=== PATIENT | female | born 1940 | race Caucasian/White ===

== ENCOUNTER → 2017-03-30 13:05 | Outpatient (POV) | payer MEDICARE, BC, SELFPAY | DX: Z00.00 Encounter for general adult medical examination without abnormal findings (principal) ==

== ENCOUNTER → 2017-07-27 12:49 | Outpatient (POV) | payer MEDICARE, BC, SELFPAY | DX: Z00.00 Encounter for general adult medical examination without abnormal findings (principal) ==

== ENCOUNTER → 2017-11-30 14:18 | Outpatient (POV) | payer MEDICARE, BC, SELFPAY | DX: Z00.00 Encounter for general adult medical examination without abnormal findings (principal) ==

== ENCOUNTER → 2018-05-03 12:49 | Outpatient (POV) | payer MEDICARE, BC, SELFPAY | DX: Z00.00 Encounter for general adult medical examination without abnormal findings (principal) ==

== ENCOUNTER → 2019-01-10 14:23 | Outpatient (POV) | payer MEDICARE, BC, SELFPAY | PROVIDERS: Visit Provider Internal Medicine | DX: Z00.00 Encounter for general adult medical examination without abnormal findings (principal) ==

== ENCOUNTER → 2019-05-09 13:42 | Outpatient (POV) | payer MEDICARE, BC, SELFPAY | DX: Z00.00 Encounter for general adult medical examination without abnormal findings (principal) ==

== ENCOUNTER → 2020-05-29 11:50 | Outpatient (CLI) | payer MEDICARE, BC, SELFPAY ==
--- NOTE | 2020-05-29 12:13 | ECG_ITS ---
APPROVED REPORT Exam: Resting ECG HR:80 bpm ECG Measurements Heart Rate 80 AXES TN 142 P 38 QRSd 78 QRS 18 QT 386 T 36 QTc 445 Conclusion Normal sinus rhythm Normal ECG Electronically signed by : Arnie Bernard, 05/30/2020 08:54:11
[2020-05-29 12:34] LABS: Basophils % 0.5 % (0.1-2.0); Eosinophils # 0.1 K/mm3 (0.0-0.4); Eosinophils % 1.1 % (0.1-12.0); Hematocrit 47.7 % (37.0-47.0); Hemoglobin 15.1 g/dL (12.2-16.2); Lymphocytes # 1.4 K/mm3 (0.7-4.5); Lymphocytes % 20.1 % (10-50); Mean Corpuscular HGB Conc 31.8 g/dL (31.8-35.4); Mean Corpuscular Hemoglobin 30.7 pg (27.0-31.2); Mean Corpuscular Volume 96.7 fl (81-99); Mean Platelet Volume 7.6 fl (7.4-10.4); Monocytes # 0.4 K/mm3 (0.1-1.0); Monocytes % 5.7 % (1.7-9.3); Neutrophils # 5.1 K/mm3 (1.8-7.8); Neutrophils % 72.5 % (37.0-80.0); Platelet Count 268 K/mm3 (142-424); Red Blood Count 4.93 M/mm3 (4.20-5.40); Red Cell Distribution Width 14.5 % (11.5-17.5); White Blood Count 7.1 K/mm3 (4.8-10.8)
[2020-05-29 13:19] LABS: Anion Gap 12.3 mEq/L (5-15); Blood Urea Nitrogen 11 mg/dl (7-17); Calcium 9.4 mg/dl (8.4-10.2); Carbon Dioxide 26 mmol/L (22.0-30.0); Chloride 106 mmol/L (98-107); Estimated Glomerular Filt Rate 80 ml/min (>60); GFR (African American) 97 ML/MIN (>60); Glucose 100 mg/dl (74-100); Potassium 4.3 mmoL/L (3.5-5.1); Sodium 140 mmol/L (136-145)
== END ==
PROVIDERS: Visit Provider Colon & Rectal Surgery
DX: Z01.818 Encounter for other preprocedural examination (principal); K64.2 Third degree hemorrhoids
CPT/HCPCS: 36415; 80048; 85025; 93005

== ENCOUNTER → 2020-10-01 12:56 | Outpatient (POV) | payer MEDICARE, BC, SELFPAY | DX: Z00.00 Encounter for general adult medical examination without abnormal findings (principal) ==

== ENCOUNTER 2022-04-14 10:12 | Inpatient (IN) | payer MEDICARE, BC, SELFPAY ==
[2022-04-14] VITALS (26 sets, daily range): BP systolic 111–175; BP diastolic 66–100; PULSE 59–85; RESP 15–20; TEMP 36.9–37.2; O2SAT 94–100; BMI 29.2; BMI 32.3
--- NOTE | 2022-04-14 | IR_ITS ---
APPROVED REPORT Patient Location: Emergent Welfare Adviser: KARLA Estrada RT (R) PROCEDURES Selective coronary angiogram Thrombectomy to the first diagonal artery Drug-eluting stent deployment to the ostial proximal mid first diagonal artery Drug-eluting stent deployment to the proximal dominant right coronary INDICATION Acute anterolateral ST elevation myocardial infarction, Coronary artery disease Informed consent was obtained prior to the procedure. COMPLICATIONS None Estimated Blood Loss: Less than 10 ml TECHNIQUE One percent lidocaine used to anesthetize the right anterior aspect of the wrist. The right radial artery was accessed via the Seldinger technique. A 6 Fijian sheath was placed in the right radial artery. 2.5 mg of verapamil, 800 mcg of nitroglycerin, 1mg Lidocaine and 5000 U Heparin were given through the arterial sheath. The papa catheter was also used to perform selective coronary angiogram. Therapeutic heparin was administered in the emergency department. The ACT was over 360 seconds. The guide catheter was placed in the left main artery followed by a Choice PT extra-support wire being placed on the LAD. An additional wire was placed in the first diagonal artery and a 2.5 x 12 mm resolute Redway stent was deployed in the ostial proximal segment of the diagonal artery reducing the stenosis. This failed to restore MICHELLE-3 flow therefore a penumbra aspiration catheter was advanced and mechanical thrombectomy then restored MICHELLE-3 flow down the diagonal artery. An additional 2.5 x 26 mm resolute Avila stent was placed distal to the for stent yet still overlapping it and deployed at 12 neil. The stent balloon was then brought back into the proximal portion of the first stent which was placed and then deployed at 20 neil post dilating both stents. MICHELLE 0 flow was present at the beginning of the procedure with MICHELLE-3 flow at the end of the procedure. Following this the apparatus was removed and the guide catheter was placed in the right coronary artery followed by a Choice PT extra-support wire. A 3.5 x 12 mm resolute Avila stent was deployed at 20 neil reducing the severe proximal stenosis to 0%. MICHELLE-3 flow was present before and after the procedure. At the end the procedure the apparatus was removed the sheath was removed good hemostasis was achieved using TR banding patient was transferred to the postop putting in stable condition ANGIOGRAPHIC RESULTS The left main artery Has a distal concentric 20 to 30% stenosis The left anterior descending artery Has proximal mid vessel 10 to 20% stenoses. The distal segment has 30% stenoses. A large first diagonal artery is proximally occluded. At the end of the procedure the diagonal artery is widely patent. A small superior branch less than 1 mm in the first diagonal artery is jailed. Distally the LAD has 40 to 50% stenoses and then 70 to 80% stenosis as the LAD hits the apex. The circumflex artery Nondominant and has proximal 30% stenosis with a mid vessel 40 to 50% stenosis in the large obtuse marginal artery The right coronary artery Is dominant and has proximal eccentric 70% stenosis The BRUNNER ventriculogram reveals Not performed The left ventricular end-diastolic pressure Not measured IMPRESSION Acute ST elevation myocardial infarction involving a proximal large first diagonal artery with successful mechanical thrombectomy and drug-eluting stenting reducing amount of percent occlusion to 0% Severe stenosis in the proximal dominant right coronary with successful stenting reducing the lesion to 0% with 1 drug-eluting stent PLAN 1. Brilinta 90 twice daily plus aspirin 81 mg daily 2. LDL less than 55 to be achieved wi
--- NOTE | 2022-04-14 10:10 | ECG_ITS ---
APPROVED REPORT Exam: Resting ECG HR:81 bpm ECG Measurements Heart Rate 81 AXES NC 144 P 41 QRSd 98 QRS 1 QT 372 T 50 QTc 409 Conclusion SINUS RHYTHM WITH OCCASIONAL SUPRAVENTRICULAR PREMATURE COMPLEXES ST ELEVATION CONSISTENT WITH INJURY, PERICARDITIS, OR EARLY REPOLARIZATION [ST ELEVATION W/O NORMALLY INFLECTED T-WAVE] ABNORMAL ECG UNCONFIRMED REPORT Electronically signed by : Arnie Bernard MD 04/14/2022 17:35:55
--- NOTE | 2022-04-14 10:19 | PC.NURSE ---
ARIADNA RICHARD speaking with dr. burrell
--- NOTE | 2022-04-14 10:20 | PC.NURSE ---
stemi alert called per dr. burrell.
[2022-04-14 10:24] LABS: Basophils # 0.1 K/mm3 (0-0.2); Basophils % 1.1 % (0.1-2.0); Eosinophils # 0.1 K/mm3 (0.0-0.4); Eosinophils % 1.3 % (0.1-12.0); Hematocrit 44.4 % (37.0-47.0); Lymphocytes % 28.9 % (10-50); Mean Corpuscular HGB Conc 33.8 g/dL (31.8-35.4); Mean Corpuscular Hemoglobin 31.5 pg (27.0-31.2); Mean Corpuscular Volume 93.2 fl (81-99); Monocytes # 0.4 K/mm3 (0.1-1.0); Monocytes % 6.3 % (1.7-9.3); Neutrophils # 4.2 K/mm3 (1.8-7.8); Neutrophils % 62.4 % (37.0-80.0); Platelet Count 256 K/mm3 (142-424); Red Blood Count 4.76 M/mm3 (4.20-5.40); Red Cell Distribution Width 14.8 % (11.5-17.5); White Blood Count 6.8 K/mm3 (4.8-10.8)
--- NOTE | 2022-04-14 10:27 | HMH.EDGENADL ---
Discharge Plan Disposition Patient Disposition: Admitted As Inpatient Condition: Good Clinical Impressions Clinical Impression: ST elevation (STEMI) myocardial infarction Discharge ED Provider: Destiny Mcnair Adult HPI General Chief complaint: Chest Pain Stated complaint: chest pain Time Seen by Provider: 04/14/22 10:14 History of Present Illness HPI narrative: This patient is an 82-year-old female who denies significant past medical history presenting to the emergency department for evaluation of substernal chest pain that started this morning after water aerobics class. She states she bent over to drive her self off, and she felt a substernal chest pain radiating to her right shoulder. She states that it was a pressure. She tried to go home and see if it would go away, however it still persisted, so she came to the emergency department for further evaluation. Nothing seems to make it better or worse. It is constant. She has never experienced anything like this in the past. She denies any history of cardiopulmonary issues. Related Data Home Medications Medication Instructions Recorded Confirmed multivitamin 1 tab PO DAILY Supplement 04/14/22 04/14/22 naproxen sodium 220 mg tablet 220 mg PO DAILY Pain 04/14/22 04/14/22 (Aleve) Allergies Allergy/AdvReac Type Severity Reaction Status Date / Time No Known Allergies Allergy Verified 04/14/22 10:22 [facility] Disclaimer: The information contained in this section may have been updated after the patient was seen, as this information can be updated by other users. Medical History Breast cancer Glaucoma (increased eye pressure) Normal hysteroscopy Surgical History H/O hemorrhoidectomy History of hysterectomy Status post left breast lumpectomy Family History Mother Diabetes TIA (transient ischemic attack) Heart disease Social History Smoking Status: Never smoker alcohol intake: never current occupational status: retired Travel in the last 8 weeks: None ROS Obtained: Yes All systems reviewed & no additional complaints except as documented 14 point review of systems obtained and negative except as mentioned in HPI. Physical Exam General General appearance: alert and in no apparent distress Head Head exam: atraumatic and normocephalic Eye Eye exam: Present normal appearance, PERRL and EOMI ENT ENT exam: Present normal exam and normal oropharynx Neck Neck exam: Present normal inspection and full ROM Chest Chest inspection: Present normal inspection and symmetric chest wall rise; Absent tenderness Respiratory Respiratory exam: Present normal lung sounds bilaterally; Absent respiratory distress, wheezes, stridor or accessory muscle use Cardiovascular Cardiovascular exam: Present regular rate and normal rhythm Abdominal Exam Abdominal exam: Present soft; Absent distention or tenderness Extremities Exam Extremities exam: Present normal inspection and full ROM; Absent tenderness or edema Back Exam Back exam: Present normal inspection and full ROM; Absent tenderness Neurological Exam Neurological exam: Present alert and oriented X3 Psychiatric Psychiatric exam: Present normal affect and normal mood Skin Skin exam: Present warm and dry Medical Decision Making Medical Records Medical records reviewed: Yes I reviewed the patient's medical records. Ganga Inquiry Pt receiving controlled substance: No Vital Signs: 04/14/22 10:12 Temperature 98.4 F Temperature Source Oral Pulse Rate [Right Radial] 85 Respiratory Rate 18 Blood Pressure [Right Arm] 166/84 H Blood Pressure Mean [Right Arm] 111 Blood Pressure Source [Right Arm] Automatic Cuff Blood Pressure Position [Right Arm] Sitting 02 Sat by Pulse Oximetry 94 L
--- NOTE | 2022-04-14 10:29 | PC.NURSE ---
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
--- NOTE | 2022-04-14 10:30 | PC.NURSE ---
pt transported to label paster via stretcher per citlaly warnerrn and citlaly barrett
[2022-04-14 10:34] LABS: Chloride 107 mmol/L (98-107); Potassium 4.3 mmoL/L (3.5-5.1); Sodium 142 mmol/L (136-145)
[2022-04-14 10:36] LABS: Blood Urea Nitrogen 16 mg/dl (7-17); Creatinine Clearance Estimated 49 mL/min (50-200); Estimated Glomerular Filt Rate 80 ml/min (>60); GFR (African American) 97 ML/MIN (>60)
[2022-04-14 10:37] LABS: Alanine Aminotransferase 17 U/L (12-78); Alkaline Phosphatase 112 U/L (38-126); Anion Gap 10.3 mEq/L (5-15); Aspartate Amino Transferase 31 U/L (14-36); Bilirubin,Direct 0.1 mg/dl (0.0-0.4); Bilirubin,Indirect 1.3 mg/dL (0.0-0.9); Bilirubin,Total 1.4 mg/dl (0.2-1.3); Bilirubin,Unconjugated 1.3 mg/dL (0.0-1.1); Calcium 8.9 mg/dl (8.4-10.2); Carbon Dioxide 29 mmol/L (22.0-30.0); Glucose 113 mg/dl (74-100); Total Protein,Serum 7.1 g/dl (6.3-8.2)
--- NOTE | 2022-04-14 10:41 | PC.NURSE ---
waiting senior telecommunications technician back from dr. rivera for admission
--- NOTE | 2022-04-14 10:43 | PC.NURSE ---
ARIADNA RICHARD speaking with dr. rivera
--- NOTE | 2022-04-14 10:43 | PC.NURSE ---
DR. PARIKH SPEAKING WITH DR. BASSETT
--- NOTE | 2022-04-14 10:44 | PC.NURSE ---
notified powerhouse mechanic helper of admission
[2022-04-14 10:51] LABS: Troponin I < 0.01 ng/ml (0.00-0.034)
[2022-04-14 11:21] LABS: CATHL Activated Clotting Time 367 SEC (74-125)
--- NOTE | 2022-04-14 11:42 | PC.NURSE ---
arrived to floor by latia fromn crime lab technician at 11:35
[2022-04-14 12:17] LABS: Coronavirus 19, PCR Not Detected (NotDetected); Influenza A, PCR Not Detected (NotDetected); Influenza B, PCR Not Detected (NotDetected)
--- NOTE | 2022-04-14 12:43 | EXP.HP ---
History of Present Illness *Admission Date: 04/14/22 *Reason for visit:: STEMI *History of present illness: Ms. Kent is an 82-year-old female with a history of Breast cancer Who after getting out of the water from her water aerobics class and leaning over to dry her legs off experience some discomfort in her left anterior chest. She more or less ignored the discomfort and drove home. When the pain continued at home she presented to [facility] emergency room. She denies having any shortness of breath or palpitations. She states she did experience some nausea with her drive home. With evaluation in the emergency room EKG indicated anterior lateral ST changes. She was taken directly to the Cardiac catheterization lab with the following notation of the procedure/Findings: IMPRESSION Acute ST elevation myocardial infarction involving a proximal large first diagonal artery with successful mechanical thrombectomy and drug-eluting stenting reducing amount of percent occlusion to 0% Severe stenosis in the proximal dominant right coronary with successful stenting reducing the lesion to 0% with 1 drug-eluting stent PLAN 1. Brilinta 90 twice daily plus aspirin 81 mg daily 2. LDL less than 55 to be achieved with high intensity statin 3. Avoidance of tobacco products 4. Risk factor modification 5. Cardiac rehabilitation 6. Echocardiogram prior to discharge home 7. Patient requires at least 48 hours of continuous telemetry given the ST elevation myocardial infarction. With this visit post cath, patient is feeling well. She denies any chest pain or shortness of breath. She states she is ready to go home. Admission Laboratory data reveals a normal hemoglobin/hematocrit and white blood cell count. Blood chemistries show normal electrolytes and renal function. She does have a slightly elevated bilirubin at 1.4. Troponin I on admission to the ER was 0.01. [facility] Disclaimer: The information contained in this section may have been updated after the patient was seen, as this information can be updated by other users. Medical History Breast cancer Glaucoma (increased eye pressure) Normal hysteroscopy Surgical History H/O hemorrhoidectomy History of hysterectomy Status post left breast lumpectomy Family History Mother Diabetes TIA (transient ischemic attack) Heart disease Social History Smoking Status: Never smoker alcohol intake: never current occupational status: retired Travel in the last 8 weeks: None Review of Systems Constitutional Constitutional: Denies fatigue, Denies fever(s) and Denies headache(s) Eyes Eyes: Denies change in vision ENT Ears, Nose, Mouth, and Throat: Denies dizziness, Denies otalgia, Denies headache(s), Reports nasal discharge (This is an ongoing issue), Denies post nasal drip and Denies sore throat *Cardiovascular Cardiovascular: Reports chest pain and Denies dyspnea *Respiratory Respiratory: Denies chest congestion and Denies dyspnea *Gastrointestinal Gastrointestinal: Denies abdominal pain, Denies constipation, Denies diarrhea, Denies heartburn, Reports nausea and Denies vomiting *Genitourinary Genitourinary: Denies difficulty voiding *Musculoskeletal Musculoskeletal: Denies abnormal gait and Denies arthralgias *Neurologic Neurologic: Denies abnormal gait, Denies abnormal speech, Denies dizziness, Denies headache(s) and Denies seizure-like activity Endocrine Endocrine: Denies fatigue Meds Home Medications and Allergies Home Medications Medication Instructions Recorded Confirmed Type multivitamin 1 tab PO DAILY Supplement 04/14/22 04/14/22 History naproxen sodium 220 mg tablet 220 mg PO DAILY Pain 04/14/22 04/14/22 History (Rinku) New Prescriptions to
--- NOTE | 2022-04-14 14:04 | EXP.CARD.CON ---
History of Present Illness History of Present Illness Consult date: 04/14/22 Requesting physician: Kt Olguin Consult reason: chest pain Chief complaint: STEMI Additional Medical History:: Significant past medical history Breast cancer Left heart cath 04/14/[address] elevation myocardial infarction involving a proximal large first diagonal artery with successful mechanical thrombectomy and drug-eluting stenting reducing amount of percent occlusion to 0% Severe stenosis in the proximal dominant right coronary with successful stenting reducing the lesion to 0% with 1 drug-eluting stent PLAN 1. Brilinta 90 twice daily plus aspirin 81 mg daily 2. LDL less than 55 to be achieved with high intensity statin 3. Avoidance of tobacco products 4. Risk factor modification 5. Cardiac rehabilitation 6. Echocardiogram prior to discharge home 7. Patient requires at least 48 hours of continuous telemetry given the ST elevation myocardial infarction. History of present illness: 82-year-old white female presented to emergency department this morning with complaints of left anterior chest pain that started approximately 1 hour prior to arrival. Patient reports she had just finished a water aerobics class when pain developed. Reports pain was a pressure/burning sensation in the left anterior chest, nonradiating, associated with mild nausea 5/10. Patient reports initially she just ignored it but when pain continued as she drove home she decided to go to ER. Upon presentation to emergency department EKG showed acute anterolateral ST elevation and patient was taken to the [facility]. Patient underwent successful mechanical thrombectomy and received DEREK to first diagonal artery and to proximal dominant RCA. Patient currently admitted for 48-hour observation. Initial labs were reviewed and troponin was noted to be negative. Vital stable. Patient denies chest pain or shortness of breath at this time [facility] Disclaimer: The information contained in this section may have been updated after the patient was seen, as this information can be updated by other users. Medical History Breast cancer Glaucoma (increased eye pressure) Normal hysteroscopy Surgical History H/O hemorrhoidectomy History of hysterectomy Status post left breast lumpectomy Family History Mother Diabetes TIA (transient ischemic attack) Heart disease Social History Smoking Status: Never smoker alcohol intake: never current occupational status: retired Travel in the last 8 weeks: None Review of Systems Review of Systems Review of systems:: pertinent systems reviewed and negative unless documented below Constitutional Constitutional: Denies headache(s) ENT Ears, Nose, Mouth, and Throat: Denies dizziness and Denies headache(s) *Cardiovascular Cardiovascular: Reports system reviewed and no additional complaints, except as documented and Reports chest pain *Respiratory Respiratory: Reports system reviewed and no additional complaints, except as documented *Gastrointestinal Gastrointestinal: Reports system reviewed and no additional complaints, except as documented *Musculoskeletal Musculoskeletal: Denies abnormal gait *Neurologic Neurologic: Denies abnormal gait, Denies abnormal speech, Denies confusion, Denies dizziness, Denies headache(s) and Denies seizure-like activity Psychiatric Psychiatric: Reports system reviewed and no additional complaints, except as documented and Denies confusion Exam Data for Last 24 hours Vital signs and Labs for Last 24 Hours: Temp Pulse Resp BP Pulse Ox 98.4 F 60 16 137/96 H 97 04/14/22 10:30 04/14/22 13:55 04/14/22 13:55 04/14/22 13:55 04/14/22 13:55 Laboratory Results - last 24 hr
--- NOTE | 2022-04-14 14:17 | CA_ITS ---
APPROVED REPORT EXAM: Comprehensive 2D, Doppler, and color-flow Echocardiogram Staff Certified Nurse Midwife: Nancy More RVT Ht: 5 ft 2 in Wt: 176lbs BSA: 1.81 BP: 137/96 mmHg Indications: STEMI,CAD,CP 2D Dimensions LVOT 2.01 cm (M/F) 1.5-2.5 LA Volume 31.90 mL LA Volume Index 17.62 mL/m2 (M/F) 16-34 M-Mode Dimensions RVDd 2.90 cm (0.9-2.6) LA Diam 4.20 cm (1.9-4.0) LVDd 4.63 cm (3.5-5.7) Ao Diam 2.93 cm (2.0-3.7) LVDs 3.34 cm (3.5-5.7) IVSd 1.05 cm (0.6-1.1) PWd 0.56 cm (0.6-1.1) EF (Teich) 54.00% FS 27.90% EDV (Teich) 98.80 mL ESV (Teich) 45.40 mL LV Diastology E Decel Time 187.00 (160-240 msec) E/A Ratio 0.7 MED E' 5.20 (< 7 cm/sec) E'/MED E' Ratio 15.10 (>14) LAT E' 4.40 (<10 cm/sec) E/LAT E' Ratio 17.84 (>14) Aortic Valve LVOT Max 98.00 (70-110 cm/s) LVOT VTI 24.27 cm AoV Peak Rehan. 213.00 (50-130 cm/s) AI PHT 831.00 ms AO Peak GR. 18.20 mmHg AO Mean GR. 11.70 (<5 mmHg) AO VTI 50.57 (18-25 cm) WILBERTO (VTI) 1.52 (2.5-4.5 cm2) Mitral Valve MV E Max Rehan. 79.00 (40-130 cm/s) MV A Velocity 117.00 (40-130 cm/s) E/A Ratio 0.67 MV Decel. Time 187.00 (160-240 ms) MV PHT 55.00 ms Pulmonary Valve PV Peak Velocity 71.00 (50-150 cm/s) Tricuspid Valve TR P. Velocity 312.00 cm/s RAP Estimate 10.00 mmHg RVSP 49.00 mmHg Left Ventricle Left atrium is mildly enlarged the left ventricle is normal size mild concentric left ventricular hypertrophy, estimated ejection fraction approximately 30%, there is marked hypokinesis involving the distal septum, anterior apical and apex and anterolateral wall. Grade 1 diastolic dysfunction seen with tissue Doppler evidence of raise left atrial pressure. Right Ventricle Right atrium and right ventricle are normal size and contractility. Aortic Valve Aortic valve is thickened and calcified without significant aortic stenosis, there is mild aortic insufficiency. Mitral Valve Mitral valve leaflets are minimally thickened, there is mild mitral regurgitation. Tricuspid Valve Tricuspid valve grossly normal, there is mild tricuspid regurgitation, tricuspid regurgitation jet velocity is inadequate for calculation of the right ventricular systolic pressure. Pulmonic Valve Pulmonic valve is poorly visualized. Great Vessels Aortic root is normal size. Inferior vena cava is mildly dilated. Pericardium No significant pericardial effusion noted. Conclusion 1. Mildly enlarged left atrium, normal left ventricular size mild concentric left ventricular hypertrophy, estimated ejection fraction 30% with multiple segmental wall motion abnormality described above, grade 1 diastolic dysfunction seen with tissue Doppler evidence of raise left atrial pressure. 2. Thickened and calcified aortic valve without significant aortic stenosis, there is mild aortic insufficiency. 3. Mild mitral and tricuspid regurgitation. 4. No significant pericardial effusion noted. 5. Inferior vena cava is mildly dilated. Electronically signed by : Beto Clarke MD 04/15/2022 05:46:54
[2022-04-14 14:33] LABS: Chol/HDL Ratio 3.3 (1-3.5); Cholesterol 231 mg/dl (140-200); HDL Cholesterol 69 mg/dl (40-60); Triglycerides 88 mg/dl (30-150); VLDL Cholesterol 18 mg/dL (0-40)
[2022-04-14 14:44] LABS: Direct LDL Cholesterol 120.67 mg/dL (100-129)
--- NOTE | 2022-04-14 20:45 | PC.NURSE ---
pt c/o'd of epigastric pain and needing to use bathroom, took pt to bathroom and notifed MD Bernard that pt having epigastric pain, MD stated was likely reperfusion pain and to order tyelnol for pain, when pt got back from bathroom stated pain felt better was more discomfort now
--- NOTE | 2022-04-14 20:50 | PC.NURSE ---
notified pt's via telephone per pt's request, coming to sit with pt
[2022-04-15] VITALS (11 sets, daily range): BP systolic 110–134; BP diastolic 60–81; PULSE 60–72; RESP 16–18; TEMP 36.4–37.1; O2SAT 95–98; BMI 31.1; BMI 30.8
[2022-04-15 06:36] LABS: Basophils # 0.1 K/mm3 (0-0.2); Basophils % 0.8 % (0.1-2.0); Eosinophils # 0.1 K/mm3 (0.0-0.4); Eosinophils % 0.9 % (0.1-12.0); Hematocrit 41.8 % (37.0-47.0); Hemoglobin 13.7 g/dL (12.2-16.2); Lymphocytes # 1.4 K/mm3 (0.7-4.5); Lymphocytes % 21.8 % (10-50); Mean Corpuscular HGB Conc 32.8 g/dL (31.8-35.4); Mean Corpuscular Hemoglobin 31.1 pg (27.0-31.2); Mean Corpuscular Volume 94.7 fl (81-99); Mean Platelet Volume 7.6 fl (7.4-10.4); Monocytes # 0.6 K/mm3 (0.1-1.0); Monocytes % 8.8 % (1.7-9.3); Neutrophils # 4.4 K/mm3 (1.8-7.8); Neutrophils % 67.8 % (37.0-80.0); Platelet Count 239 K/mm3 (142-424); Red Blood Count 4.42 M/mm3 (4.20-5.40); Red Cell Distribution Width 14.9 % (11.5-17.5); White Blood Count 6.4 K/mm3 (4.8-10.8)
[2022-04-15 06:56] LABS: Anion Gap 6.6 mEq/L (5-15); Blood Urea Nitrogen 17 mg/dl (7-17); Calcium 8.3 mg/dl (8.4-10.2); Carbon Dioxide 27 mmol/L (22.0-30.0); Chloride 109 mmol/L (98-107); Creatinine Clearance Estimated 52 mL/min (50-200); Estimated Glomerular Filt Rate 80 ml/min (>60); GFR (African American) 97 ML/MIN (>60); Glucose 87 mg/dl (74-100); Potassium 3.6 mmoL/L (3.5-5.1); Sodium 139 mmol/L (136-145)
--- NOTE | 2022-04-15 08:03 | EXP.ACUTE.PN ---
Subjective *Date: 04/15/22 *Time: 08:44 Interval history: Patient states she is feeling well this morning. She denies any chest pain or shortness of breath. She states she slept well last night. Medical Exam Vital signs and Labs for Last 24 Hours: Vital Signs Temp Pulse Pulse Resp BP BP BP 04/15/22 04:00 60 04/15/22 03:48 98.8 F 68 18 110/60 04/15/22 00:00 70 04/14/22 23:43 99.0 F 74 18 131/80 04/14/22 21:00 72 18 162/85 H 04/14/22 22:00 66 16 129/78 04/14/22 20:00 04/14/22 19:30 68 18 150/92 H 04/14/22 20:00 70 04/14/22 20:00 98.5 F 72 20 175/87 H 04/14/22 18:25 75 20 157/100 H 04/14/22 17:25 77 16 158/68 H 04/14/22 16:25 72 18 134/86 04/14/22 16:00 73 04/14/22 15:25 65 16 128/75 04/14/22 12:00 70 04/14/22 14:25 62 17 158/77 H 04/14/22 13:55 60 16 137/96 H 04/14/22 13:30 59 L 15 149/76 H 04/14/22 12:45 04/14/22 12:55 59 L 16 140/81 04/14/22 12:25 60 16 142/66 H 04/14/22 12:10 66 16 135/72 04/14/22 11:55 60 17 111/70 04/14/22 11:40 67 16 136/70 04/14/22 11:25 67 18 121/67 04/14/22 11:20 67 18 124/69 04/14/22 11:15 65 19 118/67 04/14/22 11:15 65 04/14/22 11:10 65 19 111/70 04/14/22 10:30 98.4 F 83 18 164/78 H 04/14/22 10:12 98.4 F 85 18 166/84 H Pulse Ox 04/15/22 04:00 04/15/22 03:48 96 04/15/22 00:00 04/14/22 23:43 96 04/14/22 21:00 95 04/14/22 22:00 95 04/14/22 20:00 98 04/14/22 19:30 94 L 04/14/22 20:00 04/14/22 20:00 95 04/14/22 18:25 97 04/14/22 17:25 97 04/14/22 16:25 96 04/14/22 16:00 04/14/22 15:25 97 04/14/22 12:00 04/14/22 14:25 98 04/14/22 13:55 97 04/14/22 13:30 97 04/14/22 12:45 99 04/14/22 12:55 95 04/14/22 12:25 97 04/14/22 12:10 96 04/14/22 11:55 97 04/14/22 11:40 94 L 04/14/22 11:25 100 04/14/22 11:20 100 04/14/22 11:15 99 04/14/22 11:15 04/14/22 11:10 96 04/14/22 10:30 04/14/22 10:12 94 L Intake and Output 04/14/22 04/15/22 04/15/22 19:59 03:59 11:59 Intake Total 300 / 300 Output Total 300 / 300 0 / 300 0 / 300 Balance 0 / 0 0 / 0 0 / 0 Intake: Intake, Oral Amount 300 / 300 Output: Output, Urine Amount 300 / 300 0 / 300 0 / 300 Other: Number of Unmeasured Voids 1 1 1 Number of Bowel Movements 1 Weight 169 lb 9 oz Patient Weight 04/15/22 11:59 Weight 169 lb 9 oz Laboratory Results - last 24 hr 04/14/22 10:15: WBC 6.8, RBC 4.76, Hgb 15.0, Hct 44.4, MCV 93.2, MCH 31.5 H, MCHC 33.8, RDW 14.8, Plt Count 256, MPV 8.0, Neut % (Auto) 62.4, Lymph % (Auto) 28.9, [place] % (Auto) 6.3, Eos % (Auto) 1.3, Baso % (Auto) 1.1, Neut # (Auto) 4.2, Lymph # (Auto) 2.0, [place] # (Auto) 0.4, Eos # (Auto) 0.1, Baso # (Auto) 0.1 04/14/22 10:15: Sodium 142, Potassium 4.3, Chloride 107, Carbon Dioxide 29, Anion Gap 10.3, BUN 16, Creatinine 0.70, Estimated Creat Clear 49, Estimated GFR 80, Est GFR ( Amer) 97, Glucose 113 H, Calcium 8.9, Total Bilirubin 1.4 H, Direct Bilirubin 0.1, Conjugated Bilirubin 0.0, Indirect Bilirubin 1.3 H, Unconjugated Bilirubin 1.3 H, AST 31, ALT 17, Alkaline Phosphatase 112, Troponin I < 0.01, Total Protein 7.1, Albumin 4.0 04/14/22 10:15: Triglycerides 88, Cholesterol 231 H, LDL Cholesterol Direct 120.67, VLDL Cholesterol 18, HDL Cholesterol 69 H, Cholesterol/HDL Ratio 3.3 04/14/22 11:42: Activated Clotting Time 367 H* 04/14/22 12:12: SARS-CoV-2 (PCR) Not detected, Influenza A Untype (PCR) Not detected, Influenza Type B (PCR) Not detected 04/15/22 05:43: WBC 6.4, RBC 4.42, Hgb 13.7, Hct 41.8, MCV 94.7, MCH 31.1, MCHC 32.8, RDW 14.9, Plt Count 239, MPV 7.6, Neut % (Auto) 67.8, Lymph % (Auto) 21.8, [place] % (Auto) 8.8, Eos % (Auto) 0.9, Baso % (Auto) 0.8, Neut # (Auto) 4.4, Lymph # (Auto) 1.4, [place] # (Auto) 0.6, Eos # (Auto) 0.1, Baso # (
--- NOTE | 2022-04-15 09:15 | EXP.CARD.PN ---
Subjective Subjective Date: 04/15/22 Time: 08:00 Principal diagnosis: stemi Interval history: Patient sitting up in bed this morning with at bedside. Reports had a good night. Denies any chest pain or shortness of air. A.m. labs reviewed. Echo from 04/14/2022 shows an ejection fraction of 30%, grade 1 diastolic dysfunction, thickened and calcified aortic valve without significant aortic stenosis, mild aortic insufficiency. Exam Data for Last 24 hours Vital signs and Labs for Last 24 Hours: Temp Pulse Resp BP Pulse Ox 97.8 F 63 16 118/65 96 04/15/22 08:00 04/15/22 08:00 04/15/22 08:00 04/15/22 08:00 04/15/22 08:00 Laboratory Results - last 24 hr 04/14/22 10:15: WBC 6.8, RBC 4.76, Hgb 15.0, Hct 44.4, MCV 93.2, MCH 31.5 H, MCHC 33.8, RDW 14.8, Plt Count 256, MPV 8.0, Neut % (Auto) 62.4, Lymph % (Auto) 28.9, [place] % (Auto) 6.3, Eos % (Auto) 1.3, Baso % (Auto) 1.1, Neut # (Auto) 4.2, Lymph # (Auto) 2.0, [place] # (Auto) 0.4, Eos # (Auto) 0.1, Baso # (Auto) 0.1 04/14/22 10:15: Sodium 142, Potassium 4.3, Chloride 107, Carbon Dioxide 29, Anion Gap 10.3, BUN 16, Creatinine 0.70, Estimated Creat Clear 49, Estimated GFR 80, Est GFR ( Amer) 97, Glucose 113 H, Calcium 8.9, Total Bilirubin 1.4 H, Direct Bilirubin 0.1, Conjugated Bilirubin 0.0, Indirect Bilirubin 1.3 H, Unconjugated Bilirubin 1.3 H, AST 31, ALT 17, Alkaline Phosphatase 112, Troponin I < 0.01, Total Protein 7.1, Albumin 4.0 04/14/22 10:15: Triglycerides 88, Cholesterol 231 H, LDL Cholesterol Direct 120.67, VLDL Cholesterol 18, HDL Cholesterol 69 H, Cholesterol/HDL Ratio 3.3 04/14/22 11:42: Activated Clotting Time 367 H* 04/14/22 12:12: SARS-CoV-2 (PCR) Not detected, Influenza A Untype (PCR) Not detected, Influenza Type B (PCR) Not detected 04/15/22 05:43: WBC 6.4, RBC 4.42, Hgb 13.7, Hct 41.8, MCV 94.7, MCH 31.1, MCHC 32.8, RDW 14.9, Plt Count 239, MPV 7.6, Neut % (Auto) 67.8, Lymph % (Auto) 21.8, [place] % (Auto) 8.8, Eos % (Auto) 0.9, Baso % (Auto) 0.8, Neut # (Auto) 4.4, Lymph # (Auto) 1.4, [place] # (Auto) 0.6, Eos # (Auto) 0.1, Baso # (Auto) 0.1 04/15/22 05:43: Sodium 139, Potassium 3.6, Chloride 109 H, Carbon Dioxide 27, Anion Gap 6.6, BUN 17, Creatinine 0.70, Estimated Creat Clear 52, Estimated GFR 80, Est GFR ( Amer) 97, Glucose 87 D, Calcium 8.3 L I & O for Last 24 hours: Intake & Output 04/12/22 04/13/22 04/14/22 04/15/22 23:59 23:59 23:59 23:59 Intake Total 300 / 300 360 / 360 Output Total 300 / 300 0 / 0 Balance 0 / 0 360 / 360 Weight 176 lb 8 oz 169 lb 9 oz Constitutional Constitutional: no acute distress *Routine HEENT Exam Head: Present normocephalic Eye: Present EOMI and PERRL ENT: Present mucous membranes moist *Routine Neck Exam Neck: Present supple; Absent lymphadenopathy *Routine Respiratory Exam Respiratory: Present CTA bilaterally *Routine Cardiovascular Exam Cardiovascular: Present RRR *Routine Abdominal Exam Abdominal: Present soft and normoactive bowel sounds; Absent tenderness *Routine Extremities Exam Extremities: Absent cyanosis, clubbing or edema Comments: Right radial access-mild bruising present no swelling noted. No active bleeding noted. *Routine Skin Exam Skin: Present warm; Absent rash *Routine Neurological Exam Neurological: Present alert and oriented X3 Progress Note: A&P Assessment and plan (1) ST elevation (STEMI) myocardial infarction: Status: Acute (2) Stented coronary artery: Status: Acute (3) Chest pain: Status: Acute (4) Hyperlipidemia: Status: Acute (5) Coronary artery disease: Status: Acute (6) CHF (congestive heart failure): Status: Acute Assessment and Plan Assessment and Plan for All Diagnoses:: Coronary artery disease/STEMI -04/14/2019 left heart cath-successful mechanical thrombectomy and DEREK to first diagonal artery and proximal dominant RCA -Patient requires at least 48-hour monitoring status post STEMI -Aspirin 81 mg p.o. daily, Brili
--- NOTE | 2022-04-15 14:35 | PC.NURSE ---
PT IS RESTING IN BED. ALERT AND ORIENTED X4. AMBULATES TO THE BATHROOM. NSR ON TELEMETRY. EATING AND DRINKING WELL. LUNG SOUNDS CLEAR. ABDOMEN SOFT/NON TENDER WITH ACTIVE BOWEL SOUNDS. WILL CONTINUE TO MONITOR.
--- NOTE | 2022-04-15 20:32 | PC.NURSE ---
MOVING PATIENT TO ROOM 208.
--- NOTE | 2022-04-15 21:06 | PC.NURSE ---
SPOUSE NOTIFIED OF ROOM CHANGE.
[2022-04-16] VITALS: PULSE 60
[2022-04-16 04:00] VITALS: BP 144/76; PULSE 63; RESP 18; TEMP 36.5; O2SAT 96; BMI 31.4
[2022-04-16 04:41] VITALS: PULSE 65
--- NOTE | 2022-04-16 05:30 | PC.NURSE ---
RESTING QUIETLY IN BED. NO C/O PAIN OR DISCOMFORT. SR WITH INVERTED T WAVE NOTED ON TELEMETRY.
[2022-04-16 07:41] VITALS: BP 140/70; PULSE 70; RESP 20; TEMP 36.4; O2SAT 95
[2022-04-16 08:00] VITALS: PULSE 71
--- NOTE | 2022-04-16 08:27 | EXP.ACUTE.PN ---
Subjective *Date: 04/16/22 *Time: 08:32 Interval history: Patient is feeling better today. Still very fatigued. Slept better last night and is eating well. No chest pain or shortness of breath. Anxious to go home. Medical Exam Vital signs and Labs for Last 24 Hours: Vital Signs Temp Pulse Pulse Resp BP Pulse Ox 04/16/22 07:41 97.6 F 70 20 140/70 95 04/16/22 04:41 65 04/16/22 04:00 97.7 F 63 18 144/76 H 96 04/16/22 00:00 60 04/15/22 20:00 65 04/15/22 23:59 97.8 F 60 18 96 04/15/22 21:45 65 04/15/22 19:45 97.8 F 72 18 134/81 96 04/15/22 19:32 95 04/15/22 16:00 60 04/15/22 16:00 97.5 F L 66 16 123/74 95 04/15/22 12:00 60 04/15/22 12:00 98 F 65 18 134/74 98 Intake and Output 04/15/22 04/16/22 04/16/22 19:59 03:59 11:59 Intake Total 240 / 360 120 / 360 Output Total 250 / 250 0 / 250 0 / 250 Balance -10 / 110 0 / 110 120 / 110 Intake: Intake, Oral Amount 240 / 360 120 / 360 Output: Output, Urine Amount 250 / 250 0 / 250 0 / 250 Other: Number of Voids 1 1 Number of Unmeasured Voids 1 1 0 Weight 171 lb 2 oz Patient Weight 04/16/22 11:59 Weight 171 lb 2 oz I & O for Labs for Last 24 Hours: Intake & Output 04/13/22 04/14/22 04/15/22 04/16/22 11:59 11:59 11:59 11:59 Intake Total 660 / 660 360 / 360 Output Total 300 / 300 250 / 250 Balance 360 / 360 110 / 110 Weight 176 lb 8 oz 167 lb 8.821 oz 171 lb 2 oz Constitutional: Present no acute distress Respiratory: Present CTA bilaterally Cardiac: Present Reg Rate and Rhythm GI: Present soft and normal bowel sounds; Absent distention or tenderness Extremities: Absent edema, clubbing or cyanosis Skin: Present intact Neuro: Present alert and awake Assessment and Plan *Assessment and plan (1) ST elevation (STEMI) myocardial infarction: Status: Acute Category: Medical Code(s): I21.3 - ST elevation (STEMI) myocardial infarction of unspecified site (2) Stented coronary artery: Status: Acute Category: Surgical Code(s): Z95.5 - Presence of coronary angioplasty implant and graft (3) Chest pain: Status: Acute Category: Medical Code(s): R07.9 - Chest pain, unspecified (4) Hyperlipidemia: Status: Acute Category: Medical Code(s): E78.5 - Hyperlipidemia, unspecified (5) Coronary artery disease: Status: Acute Category: Medical Code(s): I25.10 - Atherosclerotic heart disease of [place] coronary artery without angina pectoris (6) CHF (congestive heart failure): Status: Acute Category: Medical Code(s): I50.9 - Heart failure, unspecified Plan Patient can discharge today. As per cardiology she will need to: Continue aspirin 81 mg p.o. daily, Brilinta 90 mg p.o. twice daily, metoprolol 12.5 mg p.o. twice daily, atorvastatin 40 mg p.o. daily, Entresto 24/26 mg p.o. twice daily.? Consider Aldactone and Jardiance later per Dr. Maddox. Patient will need LifeVest prior to discharge. Dr. Olguin entry - Saw patient, agree with above note.
--- NOTE | 2022-04-16 09:47 | EXP.CARD.PN ---
Subjective Subjective Date: 04/16/22 Time: 08:00 Principal diagnosis: stemi Interval history: Doing well, reports no issues over the evening. Denies chest pain or soa. Patient was fitted for lifevest yesterday. Exam Data for Last 24 hours Vital signs and Labs for Last 24 Hours: Temp Pulse Resp BP Pulse Ox 97.6 F 71 20 140/70 95 04/16/22 07:41 04/16/22 08:00 04/16/22 07:41 04/16/22 07:41 04/16/22 07:41 I & O for Last 24 hours: Intake & Output 04/13/22 04/14/22 04/15/22 04/16/22 23:59 23:59 23:59 23:59 Intake Total 300 / 300 600 / 600 120 / 120 Output Total 300 / 300 250 / 250 0 / 0 Balance 0 / 0 350 / 350 120 / 120 Weight 176 lb 8 oz 167 lb 8.821 oz 171 lb 2 oz Constitutional Constitutional: no acute distress *Routine Respiratory Exam Respiratory: Present CTA bilaterally and symmetric chest movement *Routine Cardiovascular Exam Cardiovascular: Present RRR, Normal S1 and Normal S2 *Routine Abdominal Exam Abdominal: Present soft and normoactive bowel sounds; Absent tenderness *Routine Extremities Exam Extremities: Present full ROM and normal capillary refill; Absent edema Comments: Right radial access-mild bruising present, no active bleeding noted. *Routine Skin Exam Skin: Present intact, dry and warm Detailed Neck Exam: Thyroids Thyroid: Absent bruit Progress Note: A&P Assessment and plan (1) ST elevation (STEMI) myocardial infarction: Status: Acute (2) Stented coronary artery: Status: Acute (3) Chest pain: Status: Acute (4) Hyperlipidemia: Status: Acute (5) Coronary artery disease: Status: Acute (6) CHF (congestive heart failure): Status: Acute Assessment and Plan Assessment and Plan for All Diagnoses:: Coronary artery disease/STEMI -04/14/2019 left heart cath-successful mechanical thrombectomy and DEREK to first diagonal artery and proximal dominant RCA -Patient requires at least 48-hour monitoring status post STEMI -Aspirin 81 mg p.o. daily, Brilinta 90 mg p.o. twice daily, atorvastatin 40mg p.o. daily, metoprolol tartrate 12.5 mg twice daily -LDL goal less than 55.? Labs pending.? Start high-dose statin -Echo EF 30% HFrEF/ Ischemic cardiomyopathy-NYHA I -Echo 04/14/2022-EF 30% with multiple segmental wall motion abnormalities, grade 1 diastolic dysfunction, thickened and calcified aortic valve without significant aortic stenosis, mild aortic insufficiency.? Mild mitral and tricuspid regurg noted -Continue aspirin 81 mg p.o. daily, Brilinta 90 mg p.o. twice daily, metoprolol 12.5 mg p.o. twice daily, atorvastatin 40 mg p.o. daily, Entresto 24/26 mg p.o. twice daily.? Consider Aldactone and Jardiance later per Dr. Maddox. -Patient will need LifeVest prior to discharge 04/16/2022-patient was fitted for LifeVest yesterday afternoon Hyperlipidemia -LDL goal less than 50.? LDL is 120.? Start patient on high-dose statin CV summary 04/16/2022: Patient CV stable for discharge with LifeVest. Please continue below listed cardiac meds. Patient needs to follow-up in cardiac office in 1 week for recheck Cardiac meds Aspirin 81 mg p.o. daily Brilinta 90 mg p.o. twice daily Atorvastatin 40 mg p.o. daily Entresto 24/26 mg twice daily Metoprolol tartrate 12.5 mg twice daily Consider addition of Aldactone and Jardiance at office follow-up
--- NOTE | 2022-04-16 10:10 | P.CONPHA_ITS ---
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
[2022-04-16 11:56] VITALS: BP 130/68; PULSE 71; RESP 18; TEMP 36.6; O2SAT 99
--- NOTE | 2022-04-19 14:27 | CARE MANAGER ---
Unable to call patient to discuss post discharge status, only number on chart has been disconnected.
--- NOTE | 2022-04-19 23:23 | EXP.DC.SUM ---
General Admission date:: 04/14/22 Discharge date: 04/16/22 HPI HPI HPI: Ms. Kent is an 82-year-old female with a history of Breast cancer Who after getting out of the water from her water aerobics class and leaning over to dry her legs off experience some discomfort in her left anterior chest. She more or less ignored the discomfort and drove home. When the pain continued at home she presented to [facility] emergency room. She denies having any shortness of breath or palpitations. She states she did experience some nausea with her drive home. With evaluation in the emergency room EKG indicated anterior lateral ST changes. She was taken directly to the Cardiac catheterization lab with the following notation of the procedure/Findings: IMPRESSION Acute ST elevation myocardial infarction involving a proximal large first diagonal artery with successful mechanical thrombectomy and drug-eluting stenting reducing amount of percent occlusion to 0% Severe stenosis in the proximal dominant right coronary with successful stenting reducing the lesion to 0% with 1 drug-eluting stent PLAN 1. Brilinta 90 twice daily plus aspirin 81 mg daily 2. LDL less than 55 to be achieved with high intensity statin 3. Avoidance of tobacco products 4. Risk factor modification 5. Cardiac rehabilitation 6. Echocardiogram prior to discharge home 7. Patient requires at least 48 hours of continuous telemetry given the ST elevation myocardial infarction. With this visit post cath, patient is feeling well. She denies any chest pain or shortness of breath. She states she is ready to go home. Admission Laboratory data reveals a normal hemoglobin/hematocrit and white blood cell count. Blood chemistries show normal electrolytes and renal function. She does have a slightly elevated bilirubin at 1.4. Troponin I on admission to the ER was 0.01. Hospital Course Hospital Course Hospital Course: The patient had cardiac catheterization with placement of 3 stents. They wanted the patient kept for 48 hours on telemetry. She did well after the procedure and denied any chest pain or shortness of breath. She was eating and sleeping well. Her repeat echo showed an EF of 30% with multiple segmental wall motion abnormalities as well as grade 1 diastolic dysfunction. She had initially received lisinopril and the plan was to transition her to Entresto once 38 hours had passed. Cardiology also felt she would need a LifeVest prior to discharge. By 04/16/2022 she was still fatigued, but otherwise feeling well. She was anxious to go home. Cardiology felt she was stable to discharge with a LifeVest and she will follow-up in their office in 1 week. Exam Data for Last 24 hours Vital signs and Labs for Last 24 Hours: Temp Pulse Resp BP Pulse Ox 97.9 F 71 18 130/68 99 04/16/22 11:56 04/16/22 11:56 04/16/22 11:56 04/16/22 11:56 04/16/22 11:56 I & O for Last 24 hours: Intake & Output 04/17/22 04/18/22 04/19/22 04/20/22 11:59 11:59 11:59 11:59 Intake Total 480 / 480 Balance 480 / 480 Narrative: Constitutional Constitutional: no acute distress Comments: Appears most comfortable lying in the bed.? Conversant *Routine HEENT Exam Head: Present normocephalic and atraumatic Eye: Present PERRL; Absent conjunctival icterus, scleral injection or conjunctivae pink ENT: Present mucous membranes moist and oropharynx clear *Routine Neck Exam Neck: Present supple; Absent carotid bruit, lymphadenopathy or thyromegaly *Routine Respiratory Exam Respiratory: Present CTA bilaterally; Absent wheezes *Routine Cardiovascular Exam Cardiovascular: Present RRR (Monitor showing sinus rhythm) *Routine Abdominal Exam Abdominal: Present soft and normoactive bowel sounds; Absent tenderness or distended *Routine Rectal Exam Rectal:: deferred *Routine Genitalia Exam Genitalia:: deferred *Routine Extremities Exam Extremities: Absent edema or calf tendern
== END 2022-04-16 13:20 | disposition home or self-care (01) | DRG 247 ==
LOC: ER 10:47 → 2ND 11:20
PROVIDERS: Internal Medicine; Nurse Practitioner; Admitting Provider Family Medicine; Emergency Provider Emergency Medicine; PCP Family Medicine; Visit Provider Family Medicine
PROC: 02C03ZZ Extirpation of Matter from Coronary Artery, One Artery, Percutaneous Approach (ICD-10-PCS; principal; 2022-04-14 10:20)
DX: I21.09 ST elevation (STEMI) myocardial infarction involving other coronary artery of anterior wall; I50.20 Unspecified systolic (congestive) heart failure; I25.10 Atherosclerotic heart disease of native coronary artery without angina pectoris; Z85.3 Personal history of malignant neoplasm of breast; H40.9 Unspecified glaucoma; E78.5 Hyperlipidemia, unspecified; I25.5 Ischemic cardiomyopathy
CPT/HCPCS: 36415; 80048; 80061; 80076; 84484; 85025; 85347; 92929; 92941; 93005; 93306; 93454; 99152; 99153; 99285; C1725; C1769; C1876; C9601; C9606; C9803; J1644; Q9967; U0003; U0005

== ENCOUNTER → 2022-04-21 14:16 | Outpatient (CLI) | payer MEDICARE, BC, SELFPAY ==
--- NOTE | 2022-04-21 | CA_ITS ---
FINAL REPORT CLINICAL HISTORY: 04/14/22 3 stents and thrombectomy. bruising and hematoma COMPARISON: None FINDINGS: Sonographic images of the right radial artery were obtained. The radial artery is patent. There is no evidence of pseudoaneurysm. IMPRESSION: Unremarkable right radial artery. Reviewed, Interpreted and Dictated by Bertin Bardales III, MD Transcribed by Kalyani Concepcion Authenticated and [facility]
== END ==
PROVIDERS: PCP Family Medicine; Visit Provider Nurse Practitioner
DX: I72.4 Aneurysm of artery of lower extremity (principal)
CPT/HCPCS: 93931

== ENCOUNTER → 2022-05-17 10:05 | Outpatient (CLI) | payer MEDICARE, BC, SELFPAY ==
--- NOTE | 2022-05-17 10:06 | CA_ITS ---
APPROVED REPORT EXAM: Comprehensive 2D, Doppler, and color-flow Echocardiogram Lap Cutter Truer Operator: Bertha Ny, ASHLEY, RVS Ht: 5 ft 2 in Wt: 160lbs BSA: 1.74 BP: 134/74 mmHg Indications: CM w/ lifevest, CAD, CHF 2D Dimensions IVSd 1.01 cm LVEF (Visual) 74.10 % PWd 1.04 cm LVDd 4.61 cm LVDs 2.63 cm M-Mode Dimensions LA Diam 4.69 cm (1.9-4.0) LVDd 4.15 cm (3.5-5.7) Ao Diam 3.16 cm (2.0-3.7) LVDs 2.83 cm (3.5-5.7) EF (Teich) 60.30% EPSs 1.11 cm FS 31.80% EDV (Teich) 76.40 mL ESV (Teich) 30.30 mL Conclusion 1. Limited echocardiogram was performed to evaluate left ventricular systolic function, estimated ejection fraction is 55 to 60% with no regional wall motion abnormality. 2. No significant pericardial effusion noted. Electronically signed by : Beto Clarke MD 05/17/2022 17:48:46
== END ==
PROVIDERS: PCP Family Medicine; Visit Provider Nurse Practitioner
DX: E78.5 Hyperlipidemia, unspecified (principal); I25.10 Atherosclerotic heart disease of native coronary artery without angina pectoris; I50.20 Unspecified systolic (congestive) heart failure; I50.9 Heart failure, unspecified; S60.219A Contusion of unspecified wrist, initial encounter; Z95.5 Presence of coronary angioplasty implant and graft
CPT/HCPCS: 93308

== ENCOUNTER → 2023-02-08 11:06 | Outpatient (CLI) | payer MEDICARE, BC, SELFPAY ==
[2023-02-08 12:46] LABS: Blood Urea Nitrogen 14 mg/dl (7-17); Estimated Glomerular Filt Rate 95 ml/min (>60); GFR (African American) 115 ML/MIN (>60)
== END ==
PROVIDERS: PCP Family Medicine; Visit Provider Surgery
DX: R10.32 Left lower quadrant pain (principal)
CPT/HCPCS: 36415; 82565; 84520

== ENCOUNTER → 2023-02-22 08:42 | Outpatient (CLI) | payer MEDICARE, BC, SELFPAY ==
--- NOTE | 2023-02-22 08:43 | CT_ITS ---
FINAL REPORT CLINICAL HISTORY: lower quad pain COMPARISON: None FINDINGS: CT OF THE ABDOMEN AND PELVIS WITH CONTRAST Axial CT images of the abdomen and pelvis were obtained after the administration of oral and IV contrast. Coronal reformatted images were also obtained and reviewed. This study was performed with techniques to keep radiation doses as low as reasonably achievable (ALARA). Individualized dose reduction techniques using automated exposure control or adjustment of mA and/or kV according to the patient's size were employed. Abdomen: Mild basilar atelectasis is present. There is a 31 mm mass in the inferior left breast. The heart is normal in size. There is a left hepatic lobe 29 mm hemangioma present. There is a posterior right hepatic lobe mass measuring 21 mm in size, likely a hepatic cyst or hemangioma. There is gallbladder wall thickening with sludge, possibly stones. The spleen is unremarkable. No adrenal mass is present. The pancreas has an unremarkable appearance. The kidneys are normal, without evidence of mass or hydronephrosis. The aorta is normal in caliber. There is no free fluid or adenopathy. No mass or abnormal fluid collection is seen. Pelvis: The appendix is normal in appearance. The urinary bladder is unremarkable. No inflammatory process is seen. There is no evidence of mass or adenopathy. There is no evidence of bowel obstruction. There are multiple diverticula present, greatest in the sigmoid colon. There is significant degenerative change of the thoracic and lumbar spine noted in this exam, but no acute bony abnormality is identified. IMPRESSION: 31 mm mass in the inferior aspect of the left breast. Correlation with mammography or ultrasound is suggested if not recently performed. 29 mm hemangioma left hepatic lobe, with a 21 mm mass in the right hepatic lobe, likely a cyst or hemangioma. Gallbladder wall thickening with sludge, and possibly stones. Would recommend ultrasound or hepatobiliary scan for further evaluation. Reviewed, Interpreted and Dictated by Bertin Bardales III, MD Transcribed by Key Lamb Authenticated and [facility]
== END ==
PROVIDERS: PCP Family Medicine; Visit Provider Surgery
DX: R10.32 Left lower quadrant pain (principal)
CPT/HCPCS: 74177; Q9967

== ENCOUNTER → 2023-03-17 09:16 | Outpatient (CLI) | payer MEDICARE, BC, SELFPAY ==
[2023-03-17 09:36] LABS: Basophils % 0.5 % (0.1-2.0); Eosinophils # 0.1 K/mm3 (0.0-0.4); Eosinophils % 1.9 % (0.1-12.0); Hematocrit 40.7 % (37.0-47.0); Hemoglobin 14.1 g/dL (12.2-16.2); Lymphocytes # 1.7 K/mm3 (0.7-4.5); Lymphocytes % 22.5 % (10-50); Mean Corpuscular HGB Conc 34.5 g/dL (31.8-35.4); Mean Corpuscular Hemoglobin 32.1 pg (27.0-31.2); Mean Platelet Volume 7.8 fl (7.4-10.4); Monocytes # 0.4 K/mm3 (0.1-1.0); Neutrophils # 5.1 K/mm3 (1.8-7.8); Neutrophils % 69.2 % (37.0-80.0); Platelet Count 248 K/mm3 (142-424); Red Blood Count 4.38 M/mm3 (4.20-5.40); Red Cell Distribution Width 14.4 % (11.5-17.5); White Blood Count 7.3 K/mm3 (4.8-10.8)
[2023-03-17 10:17] LABS: Blood Urea Nitrogen 9 mg/dl (7-17); Calcium 8.4 mg/dl (8.4-10.2); Carbon Dioxide 26 mmol/L (22.0-30.0); Chloride 109 mmol/L (98-107); Estimated Glomerular Filt Rate 95 ml/min (>60); GFR (African American) 115 ML/MIN (>60); Glucose 97 mg/dl (74-100); Sodium 139 mmol/L (136-145)
== END ==
LOC: LAB 09:17
PROVIDERS: PCP Family Medicine; Visit Provider Surgery
DX: K40.90 Unilateral inguinal hernia, without obstruction or gangrene, not specified as recurrent (principal); I21.3 ST elevation (STEMI) myocardial infarction of unspecified site
CPT/HCPCS: 36415; 80048; 85025

== ENCOUNTER 2023-03-28 06:02 | Day surgery (SDC) | payer MEDICARE, BC, SELFPAY ==
[2023-03-24 13:33] VITALS: BMI 27.4
[2023-03-28] VITALS (10 sets, daily range): BP systolic 118–130; BP diastolic 63–77; PULSE 60–76; RESP 12–20; TEMP 36.2–43; O2SAT 94–97
[2023-03-28] MEDS: LACTATED RINGERS 1000ML 1,000 ML 25 ML IV (06:31)
[2023-03-28] MEDS: CEFAZOLIN SODIUM 1 GM in 0.9 % SODIUM CHLORIDE 50 ML IV (07:06)
--- NOTE | 2023-03-28 07:35 | P.PNANES_ITS ---
[facility] Disclaimer: The information contained in this section may have been updated after the patient was seen, as this information can be updated by other users. Medical History Breast cancer Bruising of wrist Coronary artery disease Glaucoma (increased eye pressure) Normal hysteroscopy Systolic heart failure Surgical History H/O hemorrhoidectomy History of colonoscopy History of hysterectomy Status post left breast lumpectomy Family History Mother Diabetes TIA (transient ischemic attack) Heart disease Social History Smoking Status: Never smoker alcohol intake: never substance use type: denies use current occupational status: retired Travel in the last 8 weeks: None [facility] Anesthesia Checklist Patient Identification Patient Identification: Verbal (Name & ) Structural Data Admitted From: Home Planned Operative Procedure/s: r inguinal hernia rpr NPO Status Verified Time NPO: 00:00 Additional verifications Anesthesia Reactions: No Hx Blood Transfusions: No Blood Transfusion Reaction: No Airway Assessment Mallampati Score:: Class II C-Spine Mobility Assessed: Yes TMJ Mobility Assessed: Yes Dentition: Good Dentition Neurological Assessment Level of Consciousness: Awake, Alert and Appropriate Anesthesia Plan Anesthesia Risk discussed: Yes Anesthesia Plan: Verified ASA Class: III Anesthesia Type: General
--- NOTE | 2023-03-28 07:45 | SUR.OPER ---
0710- consent updated for laparoscopic, possible open right inguinal hernia repair
[2023-03-28] MEDS: LIDOCAINE 1% 20ML MDV 20 ML (07:50)
[2023-03-28] MEDS: ROPIVACAINE 0.5% 30ML VIAL 150 MG (07:50)
--- NOTE | 2023-03-28 08:45 | P.OP_ITS ---
Date of procedure: 03/28/23 Pre-op Diagnosis:: Right inguinal hernia Post-op Diagnosis:: Same Procedure performed:: Laparoscopic repair of right inguinal hernia and chronically incarcerated right femoral hernia Surgeon:: Bertin White MD MANAGER OF SELECTION AND ASSESSMENT:: Patric Luna Anesthesia: GETA Estimated blood loss (mL): 15 Clinical Note:: Patient presents for right inguinal hernia repair. She is a very pleasant 83-year-old female referred by Dr. Olguin for right inguinal hernia. She has had some issues over the past year. About 6 or 7 times she has had to have manual reduction by her who is a retired physician. Last time I saw her in the office she stated that she actually had to have it reduced on 2 occasions as she was doing some housework. She is quite active. She does do water aerobics. She did have previous STEMI with stenting earlier 2022 and has been on Brilinta. She has discontinued her Brilinta at this time.. She would like to undergo surgery after the holidays if possible. She was noted to have a right inguinal hernia. Limited discussion was held at the time of initial consultation regarding laparoscopic versus open repair. I did have her undergo CT scan for evaluation and to see if she had a contralateral hernia. CT scan revealed a left breast mass. She did have breast surgery at [facility]. There was some gallbladder wall thickening. There was no noted evidence of any hernia. However, when I review the CT scan there is evidence of hernia sac on the right. Initial plan was to proceed with open right inguinal hernia repair. However after the patient had left the office review of the CT scan carefully revealed possible femoral hernia. Therefore decision was made for attempted laparoscopic evaluation and possible repair with possible open repair. Operative findings:: She had a reducible indirect hernia and a chronically incarcerated femoral hernia containing chronically incarcerated preperitoneal fatty tissue. Operative note:: Consent was obtained and patient was taken the operating room. She was positioned in a supine position. General anesthesia was induced via endotracheal tube. Tavera catheter was placed. Abdomen was prepped and draped in the standard surgical fashion. Infraumbilical skin incision was made. Dissection was carried down to the rectus fascia. There was some scarring and normal anatomy was somewhat difficult to discern given the likely prior laparoscopic procedure. However what appeared to be anterior rectus fascia was incised. The preperitoneal space was entered. Dissecting balloon trocar was inserted. Preperitoneal space was dissected free under laparoscopic visualization. Dissecting balloon trocar was then replaced with structural balloon trocar. A couple of 5 mm trocars were inserted in the midline inferior to the umbilicus. In the process there was some unavoidable damage to the balloon and therefore this was removed and replaced with a second structural balloon trocar. The CO2 pneumo preperitoneal space was evaluated. Landmarks were identified. The inferior epigastric vessels were identified. Shekhar's ligament and pubic tubercle were identified. Peritoneal space was dissected free bluntly. Round ligament was identified as were the iliac vessels. There was some herniated preperitoneal fat as an indirect hernia along the round ligament. This was dissected free and reduced into the peritoneal cavity. There was chronically incarcerated preperitoneal fat as a probable femoral hernia versus less likely low-lying direct hernia. This was able to be reduced in its entirety. Once hernia contents were fully dissected free and reduced attention was turned to repair. Large sized Bard 3D max mesh dedicated for the right side was inserted into the preperitoneal space. It was oriented intracorporeally to cover the entire iliopectineal orifice. Given the nature of the hernia it was secured with a couple of absorbable laparoscopic anchors along Shekhar's ligament. Repair appeared adequate. There was good hemostasis. CO2 pneumo preperitoneum was evacuated under laparoscopic visualization. Trocars were removed. Local anesthetic was infiltrated into the trocar sites. Posterior fascia at the umbilicus was opened carefully to evacuate any intra- abdominal gas. Fascia at the umbilicus was then closed with multiple interrupted 0 Vicryl sutures. Local anesthetic was infiltrated. Anesthesia was injected locally for inguinal nerve block. Skin incisions were closed with 4-0 Monocryl in a subcuticular fashion. Dermabond and dressings were applied. Condition: stable Disposition: PACU Complications:: None immediately apparent
--- NOTE | 2023-03-28 08:57 | EXP.ANES.I ---
[facility] Anesthesia Record Part I Anesthesia Record I Intake, IV Amount: 1,800 Hydration: Adequate Estimated blood loss (mL): 25 Urine output (mL): 150 Blood Pressure: 126/63 SaO2: 94 Pulse Rate: 76 Airway Patency: Patent Respiratory Rate: 12 Temperature: 97.5 F Patient is:: Awake and Stable Stable to PACU at:: 09:55
[2023-03-28 15:40] LABS: Microscopic,Cath URINE MICROSCOPIC (MICROSCOPIC)
[2023-03-28 15:48] LABS: Appearance,Urine/Cath CLEAR (Clear); Bilirubin,Cath Negative (Negative); Blood, Urine/Cath TRACE-I (Negative); Color,Urine/Cath YELLOW (Yellow); Glucose,Urine/Cath (UA) Negative (Negative); Ketones,Urine/Cath Negative (Negative); Leukocyte Esterase,Cath Negative (Negative); Nitrate,Cath Negative (Negative); PH,Urine/Cath 5.5 (5.0-8.5); Protein,Urine/Cath Negative (Negative); Specific Gravity, Urine/Cath >= 1.030 (1.005-1.030); Urobilinogen,Cath 0.2 EU/dl (0.2)
[2023-03-28 16:03] LABS: Squamous Epithelial Ur./Cath Occasional #/hpf (0-5)
--- NOTE | 2023-03-30 11:15 | P.PNANES_ITS ---
[facility] Anesthesia Record Part II Anesthesia Record Part II Discharge Time: 09:25 Destination: Surgical Day Care (OP Surgery) PACU nurse assessment reviewed?: Yes Patient Condition:: Good Anesthesia Complications:: None Swallowing reflex intact?: Yes Airway Patency: Patent Cyanosis?: No Blood Pressure: 124/70 SaO2: 95 Respiratory Rate: 19 Pulse Rate: 76 Temperature: 97.7 F Mental Status: Alert & Oriented Pain level:: 0 Nausea and/or vomitting:: None Intake, IV Amount: 0 Hydration: Adequate
[2023-03-30 11:16] VITALS: BP 124/70; PULSE 76; RESP 19; TEMP 36.5; O2SAT 95
== END 2023-03-28 09:57 | disposition home or self-care (01) ==
PROVIDERS: PCP Family Medicine; Visit Provider Surgery
PROC: (CPT 49650; principal; 2023-03-28 07:30)
DX: K40.91 Unilateral inguinal hernia, without obstruction or gangrene, recurrent (principal); K41.30 Unilateral femoral hernia, with obstruction, without gangrene, not specified as recurrent
CPT/HCPCS: 49651; 49659; 81001; 96374; C1781; J2405